=== PATIENT | male | born 1970 | race African-American/Black ===

== ENCOUNTER 2024-09-11 11:13 | Inpatient (IN) | payer OTHER ==
[2024-09-11] MEDS ORDERED: MAG HYDROX/AL HYDROX/SIMETH 30 ML UNIT-DOSE CUP PO PRN (11:53)
[2024-09-11] MEDS ORDERED: ACETAMINOPHEN 325 MG TABLET (FP) PO PRN (11:53)
[2024-09-11] MEDS ORDERED: NICOTINE POLACRILEX 2 MG LOZENGE BC PRN (11:53)
[2024-09-11] MEDS ORDERED: MAGNESIUM HYDROX 2400MG/30ML ORAL SUSPENSION 30 ML CUP PO PRN (11:53)
[2024-09-11] MEDS ORDERED: BENZOCAINE/MENTHOL (CHLORASEPTIC ) LOZENGE MM PRN (11:53)
[2024-09-11] MEDS ORDERED: LOPERAMIDE HCL 2 MG CAPSULE PO PRN (11:53)
[2024-09-11] MEDS ORDERED: POLYETHYLENE GLYCOL (HEALTHYLAX) 3350 17 GM PACKET PO PRN (11:53)
[2024-09-11] MEDS ORDERED: guaiFENesin 600 MG TABLET.ER (FP) PO PRN (11:53)
[2024-09-11] MEDS ORDERED: IBUPROFEN 600 MG TABLET (FP) PO PRN (11:53)
[2024-09-11] MEDS ORDERED: NALOXONE (NARCAN) HCL 4 MG/0.1 ML SPRAY NS PRN (11:53)
[2024-09-11] MEDS ORDERED: BENZONATATE 200 MG CAPSULE PO PRN (11:53)
[2024-09-11] MEDS ORDERED: IBUPROFEN 400 MG TABLET (FP) PO PRN (11:53)
[2024-09-11 12:47] VITALS: BMI 31.6
[2024-09-11] MEDS: ASPIRIN COATED 81 MG TABLET.EC PO SCH (12:55)
[2024-09-11] MEDS: THIAMINE 100 MG TABLET PO SCH (22:17)
[2024-09-11] MEDS: MELATONIN 5 MG TABLETS PO SCH (22:17)
[2024-09-12 07:46] LABS: EPI CELLS 6 /uL (0-25.1); HYALINE CASTS 2 /uL (0-3.1); PH,URINE 5.5 (5.0-8.0); URINE APPEARANCE TURBID; URINE BACTERIA 15 /uL (0-1359); URINE BILIRUBIN NEGATIVE (NEGATIVE); URINE COLOR YELLOW; URINE GLUCOSE (UA) NEGATIVE (NEGATIVE); URINE KETONE TRACE (NEGATIVE); URINE LEUK ESTERASE TRACE (NEGATIVE); URINE NITRITE NEGATIVE (NEGATIVE); URINE PROTEIN TRACE (NEGATIVE); URINE RBC 22 /uL (0-23.9); URINE WBC 42 /uL (0-25.8)
[2024-09-12] MEDS: PRENATAL VITAMINS W/ FOLIC ACID TABLET (FP) PO SCH (09:09)
[2024-09-12 11:50] LABS: HEMOGLOBIN 13.4 GM/dL (11.7-16.9); MCH 28.6 pg (25.7-33.7); MCHC 32.7 g/dl (32.0-35.9); MEAN CELL VOLUME 87.5 fl (80-96); MEAN PLT VOLUME 8.5 fl (7.5-11.1); PLATELET COUNT 271 10^3/uL (134-434); RBC 4.69 M/mm3 (4.00-5.60); RDW 13.9 % (11.9-15.9); WHITE BLOOD COUNT 4.9 K/mm3 (4.0-10.0)
[2024-09-12 12:01] LABS: POTASSIUM 4.1 mmol/L (3.5-5.1)
[2024-09-12 12:10] LABS: CALCIUM 9.1 mg/dL (8.5-10.1)
[2024-09-12 12:11] LABS: ALBUMIN 3.2 g/dl (3.4-5.0); BLOOD UREA NITROGEN 13.9 mg/dL (7-18)
[2024-09-12 12:14] LABS: CREATININE 1.1 mg/dL (0.55-1.3)
[2024-09-12 12:15] LABS: TOT PROT 6.2 g/dl (6.4-8.2)
[2024-09-12 12:17] LABS: BILIRUBIN,TOTAL 0.5 mg/dL (0.2-1)
[2024-09-13] MEDS ORDERED: amLODIPine BESYLATE 10 MG TABLET (FP) PO SCH (12:15)
[2024-09-13] MEDS: LOSARTAN POTASSIUM 25 MG TABLET PO ONE (12:28)
[2024-09-13] MEDS: amLODIPine BESYLATE 10 MG TABLET (FP) PO SCH (14:24)
[2024-09-14] MEDS: LOSARTAN POTASSIUM 50 MG TABLET PO SCH (10:31)
[2024-09-17] MEDS ORDERED: ASPIRIN COATED 81 MG TABLET.EC PO SCH (16:15)
[2024-09-19] MEDS: NICOTINE POLACRILEX 2 MG GUM BUC PRN (10:32)
[2024-09-20 05:28] VITALS: PULSE 73; RESP 16; TEMP 96.2
[2024-09-20 09:46] VITALS: BP 130/68
[2024-09-20] MEDS ORDERED: VITAMINS A AND D TOPICAL OINTMENT TP SCH (18:00)
== END 2024-09-20 14:07 | disposition home or self-care (01) | DRG 772 ==
LOC: YASAS 11:13 → Y3NR 12:53 → Y3W 09-12 10:42
PROVIDERS: ADMIT Psychiatry & Neurology Pain Medicine; ATTEND Psychiatry & Neurology Pain Medicine
PROC: HZ42ZZZ Group Counseling for Substance Abuse Treatment, Cognitive-Behavioral (ICD-10-PCS; principal; 2024-09-11)
DX: F10.20 Alcohol dependence, uncomplicated (principal); F14.20 Cocaine dependence, uncomplicated; F17.210 Nicotine dependence, cigarettes, uncomplicated; F42.9 Obsessive-compulsive disorder, unspecified; F32.A Depression, unspecified; I10 Essential (primary) hypertension; Z59.00 Homelessness unspecified; Z88.0 Allergy status to penicillin
CPT/HCPCS: 36415; 80053; 80305; 80307; 81003; 82962; 85027; 86780; 87811; 93005; 93010